=== PATIENT | female | born 1935 | race Caucasian/White ===

== ENCOUNTER → 2019-03-07 | Outpatient (CLI) | payer MEDICARE, BC ==
--- NOTE | 2019-03-07 13:20 | CT ---
EXAMINATION TYPE: CT brain wo con DATE OF EXAM: 03/07/2019 COMPARISON: None HISTORY: Memory loss CT DLP: [address] of the brain was performed. The ventricles, basal cisterns and sulci overlying the cerebral convexities demonstrate mild enlargem ent. There is no evidence for intracranial hemorrhage or sulcal effacement. There is decreased attenuation about the periventricular white matter and deep white matter of both c erebral hemispheres, compatible with chronic small vessel ischemia. Differential diagnosis does inclu de demyelination. No mass effects are seen.No midline shift. Osseous calvarium is intact. If symptoms persist consider MRI. IMPRESSION: 1. Age related atrophic and chronic small vessel ischemic change without acute intracranial process s een at this time.
--- NOTE | 2019-03-07 14:35 | US ---
EXAMINATION TYPE: US kidneys/renal and bladder DATE OF EXAM: 03/07/2019 COMPARISON: NONE CLINICAL HISTORY: F03.90Unspecified dementia without behavioral dist. EXAM MEASUREMENTS: Right Kidney: 7.8 x 3.0 x 5.0 cm Left Kidney: 8.0 x 3.9 x 3.7 cm Right Kidney: measures small Left Kidney: Superior pole obscured by bowel gas, measures small Bladder: wnl Bilateral Jets seen: Yes IMPRESSION: 1. No suspicious acute changes bilateral kidneys.
== END | disposition home or self-care (01) ==
LOC: RADCTMAIN 12:37 → EEVIPCON 12:40
PROVIDERS: ATTEND Internal Medicine
DX: G31.1 Senile degeneration of brain, not elsewhere classified (principal); I67.82 Cerebral ischemia; F02.80 Dementia in other diseases classified elsewhere, unspecified severity, without behavioral disturbance, psychotic disturbance, mood disturbance, and anxiety; R31.21 Asymptomatic microscopic hematuria
CPT/HCPCS: 70450; 76770

== ENCOUNTER 2019-03-18 10:51 | Emergency (ER) | payer MEDICARE, BC ==
[2019-03-18] MEDS ORDERED: EPINEPHrine 10 ML SYRINGE (0.1 MG/ML) ONE (11:34)
[2019-03-18 11:38] LABS: Basophils % (A) 1 %; Eosinophils # (A) 0.1 k/uL (0-0.7); Eosinophils % (A) 1 %; HCT 45.5 % (34.0-46.0); HGB 14.1 gm/dL (11.4-16.0); Lymphocytes # (A) 2.1 k/uL (1.0-4.8); Lymphocytes % (A) 27 %; MCH 28.9 pg (25.0-35.0); MCV 93.2 fL (80.0-100.0); Mean Platelet Volume 7.8; Monocytes # (A) 0.2 k/uL (0-1.0); Monocytes % (A) 3 %; Neutrophils # (A) 5.3 k/uL (1.3-7.7); Neutrophils % (A) 68 %; Platelet Count 226 k/uL (150-450); RBC 4.88 m/uL (3.80-5.40); RDW 13.6 % (11.5-15.5); WBC 7.8 k/uL (3.8-10.6)
[2019-03-18 11:51] LABS: Calcium 9.4 mg/dL (8.4-10.2)
[2019-03-18 11:53] LABS: Albumin 3.9 g/dL (3.5-5.0); Total Protein 6.8 g/dL (6.3-8.2)
[2019-03-18 11:54] VITALS: BP 100/72; RESP 24; TEMP 97.5
--- NOTE | 2019-03-18 12:09 | ED ---
General Adult HPI - General Chief complaint: Chest Pain Stated complaint: Chest pain Time Seen by Provider: 03/18/19 10:58 Source: patient, EMS, RN notes reviewed Mode of arrival: EMS Limitations: altered mental status - History of Present Illness Initial comments: Patient is an 83-year-old female presenting to the emergency Department with reported chest discomfort. EMS provides history. Patient has became less responsive just following arrival to the emergency department and does not provide any significant history. Unclear patient has history of similar problems previously. EMS states patient was early earlier speaking with them however was demented. They state just around the time of arrival she became less responsive. - Related Data Home Medications Medication Instructions Recorded Confirmed Aspirin EC [Ecotrin Low Dose] 81 mg PO HS 03/18/19 03/18/19 Atorvastatin [Lipitor] 20 mg PO DAILY 03/18/19 03/18/19 Citalopram Hydrobromide [CeleXA] 20 mg PO DAILY 03/18/19 03/18/19 Donepezil [Aricept] 5 mg PO HS 03/18/19 03/18/19 Metoprolol Succinate (ER) [Toprol 50 mg PO BID 03/18/19 03/18/19 Xl] Multivitamins, Thera [Multivitamin 1 tab PO HS 03/18/19 03/18/19 (formulary)] Omeprazole 20 mg PO DAILY 03/18/19 03/18/19 amLODIPine [Norvasc] 10 mg PO DAILY 03/18/19 03/18/19 Allergies Allergy/AdvReac Type Severity Reaction Status Date / Time No Known Allergies Allergy Unverified 03/18/19 11:29 Review of Systems ROS Statement: Those systems with pertinent positive or pertinent negative responses have been documented in the HPI. ROS Other: All systems not noted in ROS Statement are negative. Limitations: ROS unobtainable due to patients medical condition Past Medical History Past Medical History: Dementia, Hyperlipidemia, Hypertension History of Any Multi-Drug Resistant Organisms: None Reported Past Surgical History: Appendectomy, Breast Surgery, Cardiac Valve Replacement, Hysterectomy Past Psychological History: No Psychological Hx Reported Smoking Status: Never smoker Past Alcohol Use History: None Reported Past Drug Use History: None Reported General Exam Limitations: no limitations General appearance: alert Head exam: Present: atraumatic, normocephalic Eye exam: Present: normal appearance, PERRL ENT exam: Present: normal oropharynx Neck exam: Present: normal inspection Respiratory exam: Present: normal lung sounds bilaterally Cardiovascular Exam: Present: regular rate, normal rhythm Expanded Peripheral pulses: 2+: Radial (R), Radial (L), Dorsalis Pedis (R), Dorsalis Pedis (L) GI/Abdominal exam: Present: soft. Absent: tenderness Extremities exam: Present: normal inspection. Absent: pedal edema, calf tenderness Neurological exam: Present: alert, altered Expanded Neurological exam: Present: inattentive, protecting the airway, other (Alert. Limited speech. Does not follow commands. Does move all extremities spontaneously.) Motor strength exam: RUE: 5, LUE: 5, RLE: 5, LLE: 5 Eye Response: (3) open to voice Motor Response: (5) localizes to pain Verbal Response: incomprehensible sounds Skin exam: Absent: rash Course Vital Signs 03/18/19 03/18/19 11:20 11:25 Temperature 97.5 F L Pulse Rate 81 Pulse Rate [ 82 Horse Identifier ] Respiratory 24 Rate Blood Pressure 100/72 O2 Sat by Pulse 90 L Oximetry - Reevaluation(s) Reevaluation #1: 03/18/19 12:43 Case was discussed with quality engineer medical device Kathleen who does okay release the body. 03/18/19 12:47 Case was discussed with Dr. Aguila, covering for Dr. Herman will sign certificate. EKG Findings - EKG Comments: EKG Findings:: Normal sinus rhythm 100. RI 176. QRS 106. QT 362. QTC 466. Normal axis. Inferior Q waves. Nonspecific ST changes Medical Decision Making - Medical Decision Making Called by nursing to see patient. Patient is unresponsive and pulseless. CPR was started and bag ventilation. Family was updated and states they do not want patient to be coded. They want patient DO NOT RESUSCITATE. No CPR and no intubation. Family was brought back into room. 1144 patient was found to be pulseless and apneic. No spontaneous respirations. No withdraw to pain. Pupils are fixed and dilated. PA on the monitor. Time of is 1144. Dr. Herman has been paged. - Lab Data Result diagrams: 03/18/19 11:10 03/18/19 11:10 Lab Results 03/18/19 03/18/19 03/18/19 Range/Units 11:10 11:10 11:10 WBC 7.8 (3.8-10.6) k/uL RBC 4.88 (3.80-5.40) m/uL Hgb 14.1 (11.4-16.0) gm/dL Hct 45.5 (34.0-46.0) % MCV 93.2 (80.0-100.0) fL MCH 28.9 (25.0-35.0) pg MCHC 31.0 (31.0-37.0) g/dL RDW 13.6 (11.5-15.5) % Plt Count 226 (150-450) k/uL Neutrophils % 68 % Lymphocytes % 27 % Monocytes % 3 % Eosinophils % 1 % Basophils % 1 % Neutrophils # 5.3 (1.3-7.7) k/uL Lymphocytes # 2.1 (1.0-4.8) k/uL Monocytes # 0.2 (0-1.0) k/uL Eosinophils # 0.1 (0-0.7) k/uL Basophils # 0.0 (0-0.2) k/uL PT 10.0 (9.0-12.0) sec INR 0.9 (<1.2) APTT 20.5 L (22.0-30.0) sec Sodium 138 (137-145) mmol/L Potassium 5.0 (3.5-5.1) mmol/L Chloride 107 (98-107) mmol/L Carbon Dioxide 19 L (22-30) mmol/L Anion Gap 12 mmol/L BUN 20 H (7-17) mg/dL Creatinine 1.18 H (0.52-1.04) mg/dL Est GFR (CKD-EPI)AfAm 49 (>60 ml/min/1.73 sqM) Est GFR (CKD-EPI)NonAf 43 (>60 ml/min/1.73 sqM) Glucose 233 H (74-99) mg/dL Calcium 9.4 (8.4-10.2) mg/dL Total Bilirubin 1.0 (0.2-1.3) mg/dL AST 29 (14-36) U/L ALT 20 (9-52) U/L Alkaline Phosphatase 78 (38-126) U/L Creatine Kinase 71 (30-135) U/L Troponin I (0.000-0.034) ng/mL Total Protein 6.8 (6.3-8.2) g/dL Albumin 3.9 (3.5-5.0) g/dL 03/18/19 Range/Units 11:10 WBC (3.8-10.6) k/uL RBC (3.80-5.40) m/uL Hgb (11.4-16.0) gm/dL Hct (34.0-46.0) % MCV (80.0-100.0) fL MCH (25.0-35.0) pg MCHC (31.0-37.0) g/dL RDW (11.5-15.5) % Plt Count (150-450) k/uL Neutrophils % % Lymphocytes % % Monocytes % % Eosinophils % % Basophils % % Neutrophils # (1.3-7.7) k/uL Lymphocytes # (1.0-4.8) k/uL Monocytes # (0-1.0) k/uL Eosinophils # (0-0.7) k/uL Basophils # (0-0.2) k/uL PT (9.0-12.0) sec INR (<1.2) APTT (22.0-30.0) sec Sodium (137-145) mmol/L Potassium (3.5-5.1) mmol/L Chloride (98-107) mmol/L Carbon Dioxide (22-30) mmol/L Anion Gap mmol/L BUN (7-17) mg/dL Creatinine (0.52-1.04) mg/dL Est GFR (CKD-EPI)AfAm (>60 ml/min/1.73 sqM) Est GFR (CKD-EPI)NonAf (>60 ml/min/1.73 sqM) Glucose (74-99) mg/dL Calcium (8.4-10.2) mg/dL Total Bilirubin (0.2-1.3) mg/dL AST (14-36) U/L ALT (9-52) U/L Alkaline Phosphatase (38-126) U/L Creatine Kinase (30-135) U/L Troponin I 0.074 H* (0.000-0.034) ng/mL Total Protein (6.3-8.2) g/dL Albumin (3.5-5.0) g/dL Disposition Clinical Impression: Cardiac arrest Disposition: Is patient prescribed a controlled substance at d/c from ED?: No Referrals: Marlena Herman MD [Primary Care Provider] - 1-2 days Time of Disposition: 12:09 Preliminary Cause of : Cardiac arrest
[2019-03-18 12:14] LABS: INR 0.9 (<1.2)
[2019-03-18 12:23] LABS: Partial Thromboplastin Time 20.5 sec (22.0-30.0)
[2019-03-18 16:23] VITALS: PULSE 81
== END 2019-03-18 13:50 | disposition expired ==
LOC: EC 10:51
DX: I46.9 Cardiac arrest, cause unspecified (principal); F03.90 Unspecified dementia, unspecified severity, without behavioral disturbance, psychotic disturbance, mood disturbance, and anxiety; E78.5 Hyperlipidemia, unspecified; I10 Essential (primary) hypertension; Z79.82 Long term (current) use of aspirin; Z79.899 Other long term (current) drug therapy; Z95.2 Presence of prosthetic heart valve
CPT/HCPCS: 36415; 80053; 82550; 84484; 85025; 85610; 85730; 99285